=== PATIENT | female | born 1965 ===

== ENCOUNTER 2016-10-07 02:43 | Emergency (ER) | payer OTHER ==
[~2016-10-07] VITALS: Ht 157.5 cm; Wt 136.4 kg
[2016-10-07 02:46] VITALS: BP 151/92; PULSE 82; RESP 16; O2SAT 98
--- NOTE | 2016-10-07 03:18 | ED.REPORT ---
HPI-General Illness Date of Service Oct 07, 2016 ED Provider: Joon Christian MD Patient is an obese 51 year old female who presents to the ED after she measured her blood sugar at 225 at 12:30am this morning. Patient states that she awoke from sleep feeling nauseated and shaky, which is why she decided to measure her sugars. She denies blurred vision or vomiting. The patient states that she has been feeling jittery and shaky for the past week, with the patient consulting her PCP due to her symptoms. Her PCP was concerned for diabetes and told her to start measuring her blood sugars. The patient reports last ate at 4pm this evening. She admits to being anxious. The patient is currently trying to lose weight and started exercising. She walks on the treadmill several times per week. Patient's father is diabetic and her mother's family is also diabetic. She reports a family history of stroke, with her mother having several strokes and passing away from an aneurysm. Her father also has a history of hypertension. Nursing Notes Stated Complaint: SHAKY, NAUSEA Chief Complaint: General Complaint Nursing Notes Reviewed: Yes Allergies: Uncoded Allergies: ASPERTANE (Allergy, Intermediate, 10/07/16) body aches, headaches General Time Seen by MD: 02:52 Chief Complaint Other (high blood sugar) Hx Obtained From: Patient Arrived By: Walk-in Sudden in Onset?: No Onset Occurred: 1 - 4 hours ago Symptom Duration: Since onset Severity: Current: No pain currently Severity: Maximum: No pain Recent Healthcare: No recent hospitalization, Recent doctor visit Similar Sx Previous: Yes Past Medical History Past Medical History Denies: Hypertension Reports: Morbid Obesity Past Surgical History none reported Family History Diabetes mellitus: Father and mother's famil strokes: mother of strokes and aneurysm hypertension: Father Smoking History Unknown if Ever Smoker Social History Other Social History: Good social support, Local resident Ambulatory Status Independent Review of Systems Full Review of Systems Eyes: Denies: Blurred bilateral GI: Reports: Nausea, Denies: Vomiting Neurologic: Reports: Shaking, Denies: Seizure Psychiatric: Reports: Anxiety Complete sys rev & neg: except as marked. Physical Exam Vital Signs Vital Signs Date Time Temp Pulse Resp B/P Pulse Ox O2 Delivery O2 Flow Rate FiO2 10/07/16 02:46 36.9 82 16 151/92 98 Room Air Initial VS: Reviewed, Vital signs abnormal Extremities: Vascular intact, Neuro intact Skin: Warm, Dry, No cyanosis Neurologic: Alert, Oriented, Nonfocal Psychiatric: Mood/affect normal, Behavior normal, Normal thought content General/Constitutional: Awake, Alert Appearance / Presentation: Positive: Obese, morbidly Head / Eyes: Atraumatic, Normocephalic, PERRL ENT: Airway patent, Mucous membranes moist Respiratory / Chest: Breath sounds NL, Breath sounds = bilat, No respiratory distress, No rales, No rhonchi, No wheezing Cardiovascular: Heart rate NL, Regular rhythm, No murmurs Abdomen: Soft, Non-tender Re-Eval/Medical Decision Med Decision/Clinical Course 51-year-old morbidly obese female who was recently discovered to have diabetes. She is currently not being treated medically, but attempts are being made to exercise and lose weight. Sugar tonight was 225 and she was concerned that this was dangerous. She was reassured that there is no short term danger to that level. I see no evidence of DKA. She was encouraged to continue her current program and follow up with her regular doctor if she has persistent elevated blood sugars. Source of Hx: Old records Time of Eval: 03:35 Patient Status: Condition improved Re-Evaluation/Progress Note: She was advised that her blood sugar tonight is not dangerous. She should continue to moniter her sugars and should start exercising. Patient understands and agrees with the plan to be discharged home. Discharge instructions and follow-up discussed. All questions were addressed. Return to the ED warnings given. Counseled Regarding: Diagnosis, Need for follow-up, When/why to return to ED Discharge & Departure Primary Impression: Hyperglycemia Disposition: Home Discharge Condition All VS Reviewed: Yes Condition: Stable Patient Instructions: Diabetes Mellitus Type 2 in Adults (ED) Additional Instructions: Your blood sugar is high, but not high enough to cause any immediate damage or symptoms. I commended you on your efforts to exercise and lose weight. Continue this along with watching your diet. Do not exercise too much and hurt your self. Talk to your regular doctor about your current elevated levels and see if you need to be on metformin or similar oral diabetes medication. Referrals: Alessia Choi MD (PCP) Scribe Attestation Portions of this note were transcribed by Sera Hood. I, Dr. Christian personally performed the history, physical exam and medical decision-making; I reviewed and confirmed the accuracy of the information in the transcribed note. Signed by: Cedrick Urbano, 10/07/2016 0412 copies to: Alessia Choi MD, Howard L MD Oct 07, 2016 03:18 Sera Hood Oct 07, 2016 03:34
== END 2016-10-07 04:03 | disposition home or self-care (01) ==
LOC: SED 02:43
DX: R73.9 Hyperglycemia, unspecified (principal); E66.01 Morbid (severe) obesity due to excess calories

== ENCOUNTER 2017-02-26 17:56 | Emergency (ER) | payer OTHER ==
[~2017-02-26] VITALS: Ht 157.5 cm; Wt 136.4 kg
[2017-02-26 18:06] VITALS: BP 166/99; PULSE 85; RESP 16; O2SAT 98
--- NOTE | 2017-02-26 19:49 | ED.REPORT ---
HPI-Neurologic Deficit Date of Service Feb 26, 2017 ED Provider: Brent Walls DO A 51 year old female with a history of diabetes mellitus and hypertension presents to the ED with left-sided facial numbness that began earlier this afternoon. Patient was sent from the [facility] to "rule out TIA". Sensation in her face is present but decreased. Patient denies any numbness/ weakness in her extremities or any other concerning neurological symptoms. She also denies any recent dental workup. Nursing Notes Stated Complaint: RULE OUT TIA,SENT BY [facility] Chief Complaint: Neuro Symptoms/ Deficits Nursing Notes Reviewed: Yes Allergies: Uncoded Allergies: ASPERTANE (Allergy, Intermediate, 10/07/16) body aches, headaches General Time Seen by Provider: 19:49 Chief Complaint Other (Left sided facial numbness) Hx Obtained From: Patient Arrived By: Walk-in Sudden in Onset?: No Onset Occurred: 5 - 8 hours ago Symptom Duration: Since onset Progression Since Onset: Constant Associated with: Denies: Headache, Visual disturbance, Weakness Pertinent Negative: Pt denies other symptoms Recent Healthcare: No recent hospitalization, Recent doctor visit Past Medical History Past Medical History Hypertension Diabetes Mellitus Reports: Morbid Obesity Past Surgical History None reported Family History Diabetes mellitus: Father and mother's famil strokes: mother of strokes and aneurysm hypertension: Father Smoking History Unknown if Ever Smoker Social History Alcohol Use: Denies alcohol use Drug Use: Denies drug use Other Social History: Good social support, Local resident Ambulatory Status Independent Review of Systems Denies numbness/weakness in her extremities. Neurologic: Reports: Numbness (Facial), Denies: Change LOC, Confusion, Focal weakness, Slurred speech, Weakness Complete sys rev & neg: except as marked. Physical Exam Initial Vital Signs Vital Signs (First) Date Time Temp Pulse Resp B/P Pulse Ox O2 Delivery O2 Flow Rate FiO2 02/26/17 18:06 36.8 85 16 166/99 98 Room Air Initial VS: Reviewed Neck: Supple, Non-tender, Full range of motion Extremities: Vascular intact, Neuro intact, No swelling, No tenderness Skin: Warm, Dry, No cyanosis Psychiatric: Mood/affect normal, Behavior normal, Normal thought content General/Constitutional: Awake, Alert, No acute distress Head / Eyes: Atraumatic, Normocephalic, PERRL Respiratory / Chest: Atraumatic, Breath sounds NL, Breath sounds = bilat, No respiratory distress Cardiovascular: Heart rate NL, Regular rhythm, Heart sounds NL Neurologic: Oriented X3, Speech NL, No motor deficits, CN II - XII intact NEURO: Decreased sensation to the left side of the face Interpretation & Diagnostics CT ANGIO of BRAIN Read by [facility] Radiology IMPRESSION: Normal CT angio of the brain. Lab Results Interpretation Result Diagram: 02/26/17184902/26/17 185 Test 02/26/17 18:50 02/26/17 22:03 White Blood Count 11.5th/mm3 (3.8-10.1) Red Blood Count 5.48mil/mm3 (3.90-5.20) Hemoglobin 14.7g/dL (12.0-15.6) Hematocrit 45.4% (35.0-46.0) Mean Corpuscular Volume 82.8fL (81-100) Mean Corpuscular Hemoglobin 26.8pg (27.0-35.0) Mean Corpuscular Hemoglobin Concent 32.4% (32.0-37.0) Red Cell Distribution Width 15.2% (12.3-15.4) Platelet Count 276bil/L (150-400) Neutrophils (%) (Auto) 46.6% (40-74) Lymphocytes (%) (Auto) 41.2% (14-46) Monocytes (%) (Auto) 7.9% (4-12) Eosinophils (%) (Auto) 2.6% (0-5) Basophils (%) (Auto) 1.4% (0-3) Sodium Level 137mEq/L (134-144) Potassium Level 4.0mEq/L (3.5-5.2) Chloride Level 102mEq/L (97-108) Carbon Dioxide Level 21mmol/L (18-29) Blood Urea Nitrogen 10mg/dL (6-24) Creatinine 0.50mg/dL (0.57-1.00) Estimat Glomerular Filtration Rate 188mL/min (>59) Glucose Level 95mg/dL (60-99) Calcium Level 9.1mg/dL (8.5-10.1) Magnesium Level 1.9mg/dL (1.6-2.6) Total Bilirubin 0.3mg/dL (0.0-1.2) Aspartate Amino Transf (AST/SGOT) 38U/L (0-50) Alanine Aminotransferase (ALT/SGPT) 50U/L (0-32) Alkaline Phosphatase 87U/L (25-150) Troponin T < 0.010ug/L (0.0-0.011) Total Protein 8.2g/dL (6.4-8.4) Albumin 4.0g/dL (3.4-5.0) Hold Gibbs Top Tube Received (Received) Hold Urine Received (Received) ECG Interpretation ECG Interpretation: Sinus Rhythm Rate 84 Time: 20:02 Interpreted by: ED physician CT Head Interpretation IMPRESSION: No acute intracranial process Study: Head CT no contrast Interpretation / Wet Read by: Interpret - Radiologist Re-Eval/Medical Decision Med Decision/Clinical Course CAT scan an angiogram reassuring. Diagnostics reassuring. Most of the perioral paresthesias had resolved. I recommended hospitalization to complete a stroke workup. Nils wishes to go home. Tomorrow is a of February and she has plans. With the normal CT and CTA this is at least reasonable in my mind. She should be on aspirin. She is not think about coming back tomorrow for the stroke MRI. She understands that she is taking a risk by being discharged. She is comfortable taking that risk. Risks include stroke with or disability. Re-Evaluation/Progress #1: Time of Eval: 21:17 Patient Status: Condition improved Re-Evaluation/Progress Note: Patient is rechecked. She is informed of her results and diagnosis. All questions about the intended treatment plan are addressed. She understands and agrees with the plan. Re-Evaluation/Progress #2: Time of Eval: 00:41 Patient Status: Condition improved Re-Evaluation/Progress Note: Numbness has resolved. She is agreeable to discharge at this time. Counseled Regarding: Diagnosis, Need for follow-up, When/why to return to ED Discharge & Departure Impression: Primary Impression: Facial numbness Disposition: Home Discharge Condition All VS Reviewed: Yes Condition: Improved Additional Instructions: Thank you for trusting us with your care this evening. Your emergency department results including head CT, EKG and lab work are reassuring that there is no dangerous cause for concern at this time. Your CT was negative for any signs of stoke. I do recommend an MRI within the next 24- 48 hours to prove if this was in fact a stroke or not. I respect the fact that you would like to go home tonight. Come back tomorrow we can perform the MRI here in the emergency department. Set up a follow-up with the referral neurologist as well as you r primary care. Start taking 2 baby aspirin a day until told otherwise by your physicians. Return if you have any return of the numbness or any weakness or any new symptoms. Please schedule a follow up appointment with your primary care physician in the next 2-3 days for a recheck. Please return to the emergency department if you begin to develop any new or worsening conditions including any one-sided numbness/weakness, slurred speech, facial droop, confusion or decreased consciousness. Referrals: [facility] (PCP) Codey Bullock MD Attestation Portions of this note were transcribed by Reji Olivas. I, Dr. Walls personally performed the history, physical exam and medical decision-making; I reviewed and confirmed the accuracy of the information in the transcribed note. Signed by: Cedrick Friend, 02/27/17 0043. copies to: [facility] Todd P DO Feb 26, 2017 19:49 REJI OLIVAS Feb 26, 2017 19:56
[2017-02-26 20:02] LABS: BASOPHILS % (AUTO) 1.4 % (0-3); EOSINOPHILS % (AUTO) 2.6 % (0-5); MONOCYTES % (AUTO) 7.9 % (4-12); Mean Corpuscular Hemoglobin 26.8 pg (27.0-35.0); Mean Corpuscular Volume 82.8 fL (81-100); NEUTROPHILS % (AUTO) 46.6 % (40-74); Platelet Count 276 bil/L (150-400)
[2017-02-26 20:05] VITALS: BP 145/75; PULSE 80; RESP 14; O2SAT 93
[2017-02-26 20:25] LABS: TROPONIN T < 0.010 ug/L (0.0-0.011)
[2017-02-26 20:35] LABS: Magnesium 1.9 mg/dL (1.6-2.6)
[2017-02-26 20:59] VITALS: BP 153/86; PULSE 78; RESP 18; O2SAT 98
--- NOTE | 2017-02-26 21:13 | DRSVH ---
PROCEDURE: CT BRAIN WITHOUT CONTRAST ([id number]) INDICATIONS: facial numbness TECHNIQUE: Noncontrast 4.5 mm thick angled axial sections acquired from the foramen magnum to the vertex, with c oronal reformats. COMPARISON: None. FINDINGS: Image quality: Excellent. CSF spaces: Basal cisterns are patent. No extra-axial fluid collections. Ventricles are normal in size and shape. Brain: No midline shift. No intracranial masses or hemorrhage. Sidhu-white matter interface is norm al. Skull and face: Calvarium and visualized facial bones are intact, without suspicious lesions. Sinuses: Visualized sinuses and mastoids are clear. IMPRESSION: No acute intracranial process Dictated by: Colton Hammer M.D. on 02/26/2017 at 21:10 Approved by: Colton Hammer M.D. on 02/26/2017 at 21:12
[2017-02-26 22:53] VITALS: BP 135/78; PULSE 72; RESP 20; O2SAT 98
[2017-02-27 00:52] VITALS: BP 158/81; PULSE 68; RESP 24; O2SAT 97
--- NOTE | 2017-02-27 07:06 | DRSVH ---
PROCEDURE: CT ANGIO HEAD AND NECK (P) INDICATIONS: facial numbness TECHNIQUE: Pre-contrast 4.5 mm thick sections acquired from the foramen magnum to the vertex. After the adminis tration of intravenous contrast, 1 mm thick sections acquired from the aortic arch through the [place] of [place]. Post-contrast 4.5 mm thick sections then re-acquired from the foramen magnum to the vert ex. 3-dimensional gskavqv-cfjquplpu-nrjzmcntpo (MIP) and/or volume rendering reformats were acquired of the central intracranial vasculature and neck separately. For radiation dose reduction, the foll owing was used: automated exposure control, adjustment of mA and/or kV according to patient size. COMPARISON: [facility], CT, CHEST W/O CONTRAST, 02/25/2008, 12:57. FINDINGS: Image quality: Excellent. BRAIN: CSF spaces: Ventricles are normal in size and shape. Basal cisterns are patent. No extra-axial flu id collections. Brain: No midline shift. No intracranial bleeds or masses. Sidhu-white matter interface appears int act. Skull and face: Calvarium and facial bones appear intact, without suspicious lesions. Orbits appear normal. Sinuses: Sinuses and mastoids are clear. HEAD CT ANGIOGRAPHY: Anterior circulation: Intracranial internal carotid arteries are normal in size and flow. The flow within the paired anterior cerebral arteries is normal and symmetric. The flow within the middle cer ebral arteries is normal and symmetric. The anterior communicating artery is seen. No aneurysms are seen. Posterior circulation: Visualized portions of the vertebral arteries demonstrate normal caliber, and join to form a normal appearing basilar artery. Flow within the posterior cerebral arteries is norm al and symmetric. No aneurysms are seen. NECK CT ANGIOGRAPHY: Carotid system: The great vessels demonstrate a conventional anatomy as they arise from the aortic a rch. The origins of the common carotid arteries appear patent. The common carotid arteries demonstr ate normal caliber and courses. The bifurcation regions are both widely patent. The internal caroti d arteries demonstrate normal calibers and courses. Posterior circulation: The origins of the vertebral arteries both appear widely patent. The more bustillos perior extracranial portions of both vertebral arteries also demonstrate normal courses and calibers. They join to form a normal appearing basilar artery. Soft tissues: Visualized neck soft tissues demonstrate no suspicious abnormalities. Bones: No suspicious bony lesions. Visualized cervical spine appears normally aligned. IMPRESSION: 1. Normal CT angiogram of the head and neck. 2. There are no discrepancies with the preliminary report. Dictated by: Jens Bain M.D. on 02/27/2017 at 6:50 Approved by: Jens Bain M.D. on 02/27/2017 at 6:59
== END 2017-02-27 00:53 | disposition home or self-care (01) ==
LOC: SED 17:56
DX: R20.0 Anesthesia of skin (principal); I10 Essential (primary) hypertension; E11.9 Type 2 diabetes mellitus without complications; Z91.018 Allergy to other foods
CPT/HCPCS: 36415; 70450; 70496; 70498; 80053; 82948; 83735; 84484; 85025; 93005; 99285; Q9967

== ENCOUNTER 2017-02-27 09:55 | Emergency (ER) | payer OTHER ==
[~2017-02-27] VITALS: Ht 157.5 cm; Wt 136.4 kg
[2017-02-27 10:44] VITALS: BP 146/91; PULSE 78; RESP 14; O2SAT 96
--- NOTE | 2017-02-27 11:10 | ED.REPORT ---
HPI-General Illness Date of Service Feb 27, 2017 ED Provider: Dr. Costello Pt is a 51 y/o female presenting to the ED for a recheck. The patient was seen here last night for bilateral facial numbness and is returning today by recommendation of the previous provider for a recheck and possible MRI. Documentation for that visit reported that she had left-sided facial numbness which resolved spontaneously. Head CT was negative at that time. Today, she is still mildly numb about her bilateral lower lip region. She denies dental pain or any other symptoms. Nursing Notes Stated Complaint: FOLLOW UP MRI PER DR CASTILLO Chief Complaint: General Complaint Nursing Notes Reviewed: Yes Allergies: Uncoded Allergies: ASPERTANE (Allergy, Intermediate, 10/07/16) body aches, headaches General Time Seen by MD: 11:09 Chief Complaint Other (facial numbness) Hx Obtained From: Patient Arrived By: Walk-in Sudden in Onset?: No Symptom Duration: Since onset Severity: Current: No pain currently Severity: Maximum: No pain Recent Healthcare: Recent doctor visit Similar Sx Previous: Yes Past Medical History Past Medical History Hypertension Diabetes Mellitus Reports: Morbid Obesity Past Surgical History None reported Family History Diabetes mellitus: Father and mother's famil strokes: mother of strokes and aneurysm hypertension: Father Smoking History Unknown if Ever Smoker Social History Alcohol Use: Denies alcohol use Drug Use: Denies drug use Other Social History: Good social support, Local resident Ambulatory Status Independent Review of Systems Full Review of Systems Constitutional: Denies: Chills, Fever Respiratory: Denies: Non-productive cough, Shortness of breath Cardiovascular: Denies: Chest pain, Dyspnea on exertion GI: Denies: Abdominal pain, Nausea, Vomiting Neurologic: Reports: Numbness, Denies: Abnormal movement, Bladder dysfunction, Bowel dysfunction, Change LOC , Confusion, Dizziness, Focal weakness, Headache, Lightheaded, Problem walking, Seizure, Shaking, Slurred speech, Spinning sensation, Syncope, Unable to speak, Vision change, Weakness Complete sys rev & neg: except as marked. Physical Exam Vital Signs Vital Signs Date Time Temp Pulse Resp B/P Pulse Ox O2 Delivery O2 Flow Rate FiO2 02/27/17 11:30 74 16 141/80 98 Room Air 02/27/17 11:14 74 16 141/80 98 Room Air 02/27/17 10:44 36.8 78 14 146/91 96 Room Air Initial VS: Reviewed, Vital signs normal Neck: Supple, Full range of motion Abdomen / GI: No distention Extremities: Vascular intact, Neuro intact, No swelling Skin: Warm, Dry, No cyanosis Psychiatric: Mood/affect normal, Behavior normal, Normal thought content General/Constitutional: Awake, Alert, No acute distress, Well appearing, Well developed, Well hydrated, Well nourished, Cooperative, Not toxic appearing Head / Eyes: Atraumatic, Normocephalic, PERRL, EOMI ENT: Atraumatic, Airway patent, Mucous membranes moist Neurologic: Oriented X3, Speech NL, No motor deficits, CN II - XII intact, Cerebellar NL, Memory NL Bilateral perioral numbness Re-Eval/Medical Decision Med Decision/Clinical Course Patient presents with signs and symptoms are not consistent with stroke or TIA. It should be noted that she very distinctly complains of bilateral facial numbness that began yesterday and has mostly resolved, she states that she simply has some mild paresthesia of the bilateral lower lip. I did discuss with the radiologist whether or not an emergent MRI was indicated, the patient is comfortable going home without having an emergent MRI. She agrees to call her doctor tomorrow for close follow-up. Further discussion regarding signs and symptoms of stroke or had with the patient. Return in follow-up precautions given. Time of Eval: 11:25 Re-Evaluation/Progress Note: F/U instructions and RTER warnings given. She would like to be discharged and have outpatient f/u and discussion at that time for advanced imaging. All questions addressed. Counseled Regarding: Diagnosis, Need for follow-up, When/why to return to ED Discharge & Departure Primary Impression: Facial numbness Disposition: Home Discharge Condition All VS Reviewed: Yes Condition: Stable Additional Instructions: I am glad that your symptoms are continuing to improve. You should be seen by her regular doctor in the morning and have repeat exam. Your doctor may decide to order an outpatient MRI. continue taking aspirin daily. Return to the ER immediately if develop signs or symptoms of stroke. Referrals: [facility] (PCP) Scribe Attestation Portions of this note were transcribed by Toney Canales. I, Dr. Costello, personally performed the history, physical exam and medical decision-making; I reviewed and confirmed the accuracy of the information in the transcribed note. Signed by Cedrick Doyle, 02/27/17 1137 copies to: [facility] Timothy S DO Feb 27, 2017 11:10 TONEY CANALES Feb 27, 2017 11:20
[2017-02-27 11:14] VITALS: BP 141/80; PULSE 74; RESP 16; O2SAT 98
[2017-02-27 11:30] VITALS: BP 141/80; PULSE 74; RESP 16; O2SAT 98
== END 2017-02-27 11:31 | disposition home or self-care (01) ==
LOC: SED 09:55
DX: R20.0 Anesthesia of skin (principal); I10 Essential (primary) hypertension; E11.9 Type 2 diabetes mellitus without complications